=== PATIENT | female | born 1945 | race African-American/Black ===

== ENCOUNTER 2024-10-01 07:27 | Emergency (ER) | payer MEDICARE, OTHER ==
[~2024-10-01] VITALS: Ht 167.6 cm; Wt 64.0 kg
[2024-10-01 07:30] VITALS: O2SAT 99
[2024-10-01] MEDS ORDERED: DICYCLOMINE 10 MG/5 ML ORAL SYR PO STA (07:35)
[2024-10-01] MEDS: ONDANSETRON 4MG ODT PO STA (08:03)
[2024-10-01] MEDS: MAGNESIUM/ALUMINUM HYDROXIDE/SIMETHICONE 30ML UDC PO STA (08:03)
[2024-10-01] MEDS: DICYCLOMINE HCL 10MG CAPSULE PO NR (08:25)
[2024-10-01] MEDS: ACETAMINOPHEN 325MG TABLET PO ONE (08:33)
[2024-10-01 08:47] LABS: BASOPHILS % 0.2 % (0.0-2.0); EOSINOPHILS % 0.1 % (0.0-5.0); HEMATOCRIT. 39.7 % (36.0-48.0); HEMOGLOBIN. 12.9 g/dL (12.0-16.0); LYMPHOCYTES % 8.2 % (20.0-50.0); MEAN CORPUSCULAR HEMOGLOBIN 30.2 pg (28.0-32.0); MEAN CORPUSCULAR HGB CONC 32.5 g/dL (31.0-37.0); MEAN PLATELET VOLUME 8.4 fl (7.4-10.4); MONOCYTES % 5.6 % (2.0-8.0); NEUTROPHILS % 85.9 % (40.0-76.0); PLATELET 240 x1000/uL (130-400); RED BLOOD CELL COUNT 4.27 mill/uL (4.2-5.4); RED CELL DISTRIBUTION WIDTH 13.6 % (11.6-14.6); WHITE BLOOD COUNT 11.2 x1000/uL (4.5-11.0)
[2024-10-01 08:53] LABS: PROTHROMBIN TIME 10.5 sec (9.6-11.0)
[2024-10-01 08:56] LABS: CHLORIDE 104 mEq/L (98-107); POTASSIUM 4.1 mEq/L (3.5-5.1); SODIUM 138 mEq/L (136-145)
[2024-10-01 08:57] LABS: CALCIUM 10.3 mg/dL (8.7-10.4); CARBON DIOXIDE 21 mEq/L (21-32)
[2024-10-01 09:02] LABS: CREATININE 1.3 mg/dL (0.6-1.0); GLUCOSE 190 mg/dL (70-105); UREA NITROGEN BLOOD 24 mg/dL (9-23)
[2024-10-01 09:04] LABS: ALANINE AMINOTRANSFERASE < 7 IU/L (10-49); ALBUMIN 4.4 g/dL (3.2-4.8); ASPARTATE AMINOTRANSFERASE 12 IU/L (<34); BILIRUBIN DIRECT 0.2 mg/dL (<=3.0); BILIRUBIN TOTAL 0.6 mg/dL (0.1-1.0); PROTEIN TOTAL 7.5 g/dL (6.0-8.3); TROPONIN I HIGH SENSITIVITY 4 ng/L (3.0-34)
[2024-10-01] MEDS: MORPHINE SULFATE 4 MG/ML INJ (FOR IV/IM USE) IV ONE (11:26)
[2024-10-01] MEDS: SODIUM CHLORIDE 0.9% 1,000 ML IV ONE (12:12)
[2024-10-01] MEDS: FAMOTIDINE 20MG/2ML VIAL IV ONE (14:26)
[2024-10-01 16:32] VITALS: BP 153/67; PULSE 76; RESP 12; TEMP 36.8; O2SAT 98
== END 2024-10-01 16:48 | disposition short-term general hospital (02) ==
LOC: ER 07:27
DX: R10.11 Right upper quadrant pain (principal); R10.12 Left upper quadrant pain; E78.00 Pure hypercholesterolemia, unspecified; E11.9 Type 2 diabetes mellitus without complications; I11.0 Hypertensive heart disease with heart failure; I50.9 Heart failure, unspecified; Z88.8 Allergy status to other drugs, medicaments and biological substances
CPT/HCPCS: 80076; 80048; 83690; 85025; 85610; 84484; 36415; 74176; 93005; 96361; 96374; 96375; 99285; Q0162; J1308; J2270; J7030; Z7610